=== PATIENT | male | born 1960 | race Caucasian/White ===

== ENCOUNTER 2019-04-17 10:00 | Outpatient (RCR) | payer BC ==
[~2019-04-17 10:00] MED LIST: AFRIN30 ML; LEXAPRO10 MG PO; OMEPRAZOLE20 MG PO; PEPCID20 MG PO; VITAMIN B-121000 MCG PO; VITAMIN D34000 UNIT PO
== END 2019-04-29 ==
LOC: PT 10:00
PROVIDERS: ATTEND Orthopaedic Surgery
DX: M65.9 Synovitis and tenosynovitis, unspecified (principal); M25.562 Pain in left knee; M62.81 Muscle weakness (generalized)